=== PATIENT | male | born 1970 | race Hispanic/Latino ===

== ENCOUNTER 2024-08-09 07:03 | Emergency (ER) | payer OTHER ==
[2024-08-09 07:32] LABS: Absolute Eosinophils 0.1 K/uL (0-0.5); Absolute Lymphocytes (CBC) 0.9 K/uL (0.7-4.9); Absolute Monocytes 0.6 K/uL (0.1-1.3); Absolute Neutrophil 5.9 K/uL (1.8-8.0); Basophils % 0.2 % (0-1.3); Eosinophils % 1.1 % (0-4.4); Hematocrit 41.4 % (39.6-49.0); Hemoglobin 14.2 g/dL (13.6-17.9); Lymphocytes % 12.4 % (15.3-44.8); MCH 33.1 pg (27.0-35.0); MCHC 34.2 g/dL (32.0-36.0); MCV 96.9 fL (80-100); MPV 7.2 fL (7.6-11.3); Neutrophils % 78.3 % (41.7-73.7); Platelets 287 thou/uL (152-406); RBC Red Blood Cell Count 4.28 M/uL (4.33-5.43); Red Cell Distribution Width 14.1 % (12.1-15.2)
[2024-08-09 07:51] LABS: Anion Gap 8.6 mEq/L (5.0-15.0); Potassium 3.6 mEq/L (3.5-5.1)
--- NOTE | 2024-08-09 08:01 | RAD REPORT ---
EXAMINATION: ONE VIEW CHEST XR CLINICAL INDICATION: Male, 54 years old.,syncope TECHNIQUE: Frontal chest projection is submitted. Examination is limited by patient positioning and t echnique. COMPARISON: No prior exam. FINDINGS: The lungs are well inflated and clear. No pneumothorax or sizable effusion. The heart is normal in s ize. Mediastinal contours are unremarkable. IMPRESSION: No acute intrathoracic abnormalities.
--- NOTE | 2024-08-09 09:25 | ER ---
Nurse's Notes [facility] Name: Ricardo Edge Age: 54 yrs Sex: Male : 1970 Arrival Date: 08/09/2024 Time: 07:03 Bed 3 Private MD: Diagnosis: Hypoglycemia, unspecified Presentation: 08/09 07:06 Chief complaint: EMS states: TONED OUT FOR PT FOUND UNRESPONSIVE IN TRUCK A WORK SITE, dd2 BGS CHECKED BY CO-WORKER AND GIVEN 1 TUBE OF GLUCOSE. WHEN EMS ARRIVED BGS 30 AND WAS ADMINISTERED 1MG GLUCAGON. PT BECAME AAOX2, BGS RECHECK IN ROUTE. 29. Coronavirus screen: At this time, the client does not indicate any symptoms associated with coronavirus-19. Ebola Screen: No symptoms or risks identified at this time. Initial Sepsis Screen: Does the patient meet any 2 criteria? No. Patient's initial sepsis screen is negative. Does the patient have a suspected source of infection? No. Patient's initial sepsis screen is negative. Risk Assessment: Do you want to hurt yourself or someone else? Patient reports no desire to harm self or others. Onset of symptoms was August 09, 2024. Care prior to arrival: Medication(s) given: Glucagon, Glucose check: 29. 07:06 Method Of Arrival: EMS: [facility] dd2 07:06 Acuity: OLIVIA 3 dd2 Historical: - Allergies: 07:11 No Known Allergies; dd2 - PMHx: 07:11 Diabetes mellitus; Hypertensive disorder; dd2 - PSHx: 07:11 HERNIA REPAIR; dd2 - Immunization history:: Adult Immunizations up to date. - Infectious Disease History:: Denies. - Social history:: Smoking status: Patient denies any tobacco usage or history of. - Family history:: not pertinent. - Hospitalizations: : No recent hospitalization is reported. Screenin:21 [facility] ED Fall Risk Assessment (Adult) History of falling in the last 3 months, ko1 including since admission No falls in past 3 months (0 pts) Confusion or Disorientation No (0 pts) Intoxicated or Sedated No (0 pts) Impaired Gait No (0 pts) Mobility Assist Device Used No (0 pt) Altered Elimination No (0 pt) Score/Fall Risk Level 0 - 2 = Low Risk Oriented to surroundings, Maintained a safe environment, Educated pt \T\ family on fall prevention, incl call for assistance when getting out of bed, Assessed \T\ reinforced patient's understanding of fall precautions, Hourly rounding (assess needs \T\ fall precautionary measures) done. Abuse screen: Denies threats or abuse. Denies injuries from another. Nutritional screening: No deficits noted. Tuberculosis screening: No symptoms or risk factors identified. Assessment: 07:21 General: Appears in no apparent distress. Behavior is calm, cooperative, appropriate ko1 for age. Pain: Complains of pain in right leg and left leg. Neuro: No deficits noted. Cardiovascular: No deficits noted. Respiratory: No deficits noted. GI: No deficits noted. No signs and/or symptoms were reported involving the gastrointestinal system. : No deficits noted. No signs and/or symptoms were reported regarding the genitourinary system. EENT: No deficits noted. No signs and/or symptoms were reported regarding the EENT system. Derm: No deficits noted. No signs and/or symptoms reported regarding the dermatologic system. Musculoskeletal: No deficits noted. No signs and/or symptoms reported regarding the musculoskeletal system. 08:14 Reassessment: Patient states feeling better. Patient states symptoms have improved. to rs5 bedside for blood sugar check, blood sugar results, 208, provider notified . Vital Signs: 07:06 BP 115 / 68; Pulse 57; Resp 15; Temp 97.1; Pulse Ox 99% on R/A; Weight 70.76 kg; dd2 07:24 BP 135 / 71; Pulse 73; Resp 17; Pulse Ox 100% on R/A; ko1 08:51 BP 137 / 51; Pulse 74; Resp 16; Pulse Ox 99% ; ko1 09:29 BP 134 / 68; Pulse 72; Resp 15; Pulse Ox 99% ; ko1 ED Course: 07:05 Patient arrived in ED. dd2 07:05 Raymon Chang MD is Attending Physician. rn 07:11 Triage completed. dd2 07:11 Marlen Boo, JOSAFAT is Primary Nurse. ko1 07:11 Arm band placed on right wrist. Patient placed in an exam room, on a stretcher, on dd2 pulse oximetry. 07:20 Basic Metabolic Panel Sent. ko1 07:20 CBC with Diff Sent. ko1 07:20 NT PRO-BNP Sent. ko1 07:20 Troponin HS Sent. ko1 07:21 Patient has correct armband on for positive identification. Placed in gown. Bed in low ko1 position. Call light in reach. Side rails up X2. Provided Education on: meds, labs. Client placed on continuous cardiac and pulse oximetry monitoring. NIBP monitoring applied. perishable freight inspector on. Door closed. Noise minimized. Warm blanket given. Pillow given. Diet tray given. PO fluids given. 07:21 Initial lab(s) drawn, by me, sent to lab. EKG done, by ED staff, reviewed by Raymon Chang MD. Inserted saline lock: 20 gauge in left antecubital area, using aseptic technique. Blood collected. Flushed with 10 mL NS. 07:46 XRAY Chest (1 view) In Process Unspecified. EDMS 09:29 No provider procedures requiring assistance completed. IV discontinued, intact, ko1 bleeding controlled, No redness/swelling at site. Pressure dressing applied. Administered Medications: No medications were administered Medication: 07:21 VIS not applicable for this client. ko1 Point of Care Testing: Blood Glucose: 07:11 Blood Glucose: 68 mg/dL; dd2 Ranges: Outcome: 09:25 Discharge ordered by . rn 09:29 Discharged to home ambulatory, with friend, ko1 09:29 Condition: stable 09:29 Discharge instructions given to patient, Instructed on discharge instructions, follow up and referral plans. Demonstrated understanding of instructions, follow-up care, medications, 09:34 Patient left the ED. ko1 Signatures: Dispatcher [employer] EDMS Raymon Chang MD MD rn Oliver, Kathy RN RN ko1 Eddie Nunn RN RN rs5 YOMI DAMON RN RN dd2 Corrections: (The following items were deleted from the chart) 07:13 07:11 Blood Glucose: Blood Glucose Reading=62 mg/dL. dd2 dd2
--- NOTE | 2024-08-09 09:26 | EDPHYS ---
Physician Documentation [facility] Name: Ricardo Edge Age: 54 yrs Sex: Male : 1970 Arrival Date: 08/09/2024 Time: 07:03 Bed 3 Private MD: ED Physician Raymon Chang HPI: 08/09 07:40 This 54 yrs old Male presents to ER via EMS with complaints of Low Blood rn Sugar, Altered Mental Status. 07:40 The patient or guardian reports hypoglycemia, that was potentially precipitated by no rn particular event. Onset: The symptoms/episode began/occurred this morning. Associated signs and symptoms: Pertinent negatives: nausea, seizure activity, vomiting. Current symptoms: In the emergency department the patient's symptoms have improved. The patient has experienced similar episodes in the past. Patient brought in for low blood sugar by EMS. Patient was found at work altered. Glucose was in the 20s and given oral glucose with improvement of symptoms. EMS administered glucagon with continued improvement in mental status. Patient reports has been on insulin for years took it this morning and ate some food. Denies recent illness. No chest pain or shortness of breath. No abdominal pain. No vomiting or diarrhea. No focal neurological deficit. No injury from a fall. Patient does not remember events. Denies headache or head pain. No neck pain or back pain.. Historical: - Allergies: 07:11 No Known Allergies; dd2 - PMHx: 07:11 Diabetes mellitus; Hypertensive disorder; dd2 - PSHx: 07:11 HERNIA REPAIR; dd2 - Immunization history:: Adult Immunizations up to date. - Infectious Disease History:: Denies. - Social history:: Smoking status: Patient denies any tobacco usage or history of. - Family history:: not pertinent. - Hospitalizations: : No recent hospitalization is reported. ROS: 07:40 Constitutional: Negative for fever, chills, and weight loss, Cardiovascular: Negative rn for chest pain, palpitations, and edema, Respiratory: Negative for shortness of breath, cough, wheezing, and pleuritic chest pain, Abdomen/GI: Negative for abdominal pain, nausea, vomiting, diarrhea, and constipation, Back: Negative for injury and pain, MS/Extremity: Negative for injury and deformity, Skin: Negative for injury, rash, and discoloration, Neuro: Negative for headache, weakness, numbness, tingling, and seizure, Exam: 07:40 Constitutional: This is a well developed, well nourished patient who is awake, alert, rn and in no acute distress. Head/Face: Normocephalic, atraumatic. Cardiovascular: Regular rate and rhythm. No pulse deficits. Respiratory: No increased work of breathing, no retractions or nasal flaring. Abdomen/GI: Soft, non-tender Neuro: Awake and alert, GCS 15, oriented to person, place, time, and situation. Cranial nerves II-XII grossly intact. Motor strength 5/5 in all extremities. Sensory grossly intact. Cerebellar exam normal. Normal gait. Vital Signs: 07:06 BP 115 / 68; Pulse 57; Resp 15; Temp 97.1; Pulse Ox 99% on R/A; Weight 70.76 kg; dd2 07:24 BP 135 / 71; Pulse 73; Resp 17; Pulse Ox 100% on R/A; ko1 08:51 BP 137 / 51; Pulse 74; Resp 16; Pulse Ox 99% ; ko1 09:29 BP 134 / 68; Pulse 72; Resp 15; Pulse Ox 99% ; ko1 MDM: 07:05 Medical Screening Exam initiated rn 09:22 Differential diagnosis: hypoglycemic episode. Data reviewed: vital signs, nurses notes. rn 09:23 Counseling: I had a detailed discussion with the patient and/or guardian regarding the rn historical points, exam findings, and any diagnostic results supporting the discharge/admit diagnosis, lab results, radiology results, the need for outpatient follow up, to return to the emergency department if symptoms worsen or persist or if there are any questions or concerns that arise at home. Response to treatment: the patient's symptoms have markedly improved after treatment, the patient's condition has returned to base line, the patient is now symptom free, and as a result, I will discharge patient. Special discussion: I discussed with the patient/guardian in detail that at this point there is no indication for admission to the hospital. It is understood, however, that if the symptoms persist or worsen the patient needs to return immediately for re-evaluation. ED course: Patient feels much better, back to baseline, smiling and joking. Glucose above 200 now after p.o. challenge. This has happened to her multiple times before, no acute findings and workup today. Normal neurological exam. Patient states has been managing his insulin on his own and last time this happened was a few months ago. Will discharge home with PCP follow-up and return precautions.. 08/09 07:15 Order name: Basic Metabolic Panel; Complete Time: 07:56 rn 08/09 07:15 Order name: CBC with Diff; Complete Time: 07:56 rn 08/09 07:15 Order name: NT PRO-BNP; Complete Time: 07:56 rn 08/09 07:15 Order name: Troponin HS; Complete Time: 07:56 rn 08/09 07:20 Order name: Glucose, Ancillary Testing; Complete Time: 07:35 EDMS 08/09 08:25 Order name: Glucose, Ancillary Testing; Complete Time: 08:32 EDMS 08/09 07:15 Order name: XRAY Chest (1 view); Complete Time: 08:02 rn 08/09 07:15 Order name: Cardiac monitoring; Complete Time: 07:16 rn 08/09 07:15 Order name: EKG - Nurse/Tech; Complete Time: 07:20 rn 08/09 07:15 Order name: IV Saline Lock; Complete Time: 07:16 rn 08/09 07:15 Order name: Labs collected and sent; Complete Time: 07:16 rn 08/09 07:15 Order name: O2 Per Protocol; Complete Time: 07:16 rn 08/09 07:15 Order name: O2 Sat Monitoring; Complete Time: 07:16 rn 08/09 07:15 Order name: PO challenge; Complete Time: 07:16 rn Administered Medications: No medications were administered Point of Care Testing: Blood Glucose: 07:11 Blood Glucose: 68 mg/dL; dd2 Ranges: Critical Glucose Levels:Adult <50 mg/dl or >400 mg/dl <40 mg/dl or >180 mg/dl Disposition Summary: 08/09/24 09:25 Discharge Ordered Notes: Location: Home rn Problem: new rn Symptoms: have improved rn Condition: Stable rn Diagnosis - Hypoglycemia, unspecified rn Followup: rn - With: Private Physician - When: As needed - Reason: Recheck today's complaints, Re-evaluation by your physician Discharge Instructions: - Discharge Summary Sheet rn - Hypoglycemia rn - Blood Glucose Monitoring, Adult rn Forms: - Medication Reconciliation Form rn - Antibiotic rn rehab - Prescription Opioid Use rn - Patient Portal Instructions rn - Leadership Thank You Letter rn Signatures: Dispatcher [id number] EDRI Raymon Chang MD MD rn MARISOL, JOSAFAT CELAYA RN dd2 Corrections: (The following items were deleted from the chart) 07:16 07:16 BASIC METABOLIC PANEL+C.LAB.BRZ ordered. EDMS EDMS 07:16 07:16 CBC+H.LAB.BRZ ordered. EDMS EDMS 07:16 07:16 PROBNP+C.LAB.BRZ ordered. EDMS EDMS 07: 07:16 Troponin High Sensitivity+C.LAB.BRZ ordered. EDMS EDMS 07:16 07:16 Chest Single View+RAD.RAD.BRZ ordered. EDMS EDMS
[2024-08-09 09:40] VITALS: TEMP 97.1
[2024-08-09 09:43] VITALS: O2SAT 99
[2024-08-09 09:45] VITALS: BP 134/68
--- NOTE | 2024-08-14 11:02 | EKG ---
Test Date: 2024-08-09 Test Time: 07:22:08 Coal Cager: VIOLET MEASUREMENT RESULTS: Intervals: Rate: 57 OR: 136 QRSD: 100 QT: 442 QTc: 430 [place]: P: 66 OR: 136 QRS: 59 T: 57 INTERPRETIVE STATEMENTS: Suspect unspecified pacemaker failure Sinus bradycardia Otherwise normal ECG No previous ECG available for comparison Electronically Signed On 08-14-24 10:54:35 EQUIPMENT VALIDATION ENGINEER by Manuel Mcclellan
--- NOTE | 2024-08-14 11:02 | EKG ---
Test Date: 2024-08-09 Test Time: 07:22:55 Traffic Reporter: VIOLET MEASUREMENT RESULTS: Intervals: Rate: 61 ME: 138 QRSD: 98 QT: 456 QTc: 459 [place]: P: 83 ME: 138 QRS: 57 T: 54 INTERPRETIVE STATEMENTS: Suspect unspecified pacemaker failure Normal sinus rhythm Normal ECG Compared to ECG 08/09/2024 07:22:08 Sinus bradycardia no longer present Electronically Signed On 08-14-24 10:54:31 FINE GRADE BULLDOZER OPERATOR by Manuel Mcclellan
== END 2024-08-09 09:34 | disposition home or self-care (01) ==
LOC: ER 07:03
DX: E11.649 Type 2 diabetes mellitus with hypoglycemia without coma (principal)
CPT/HCPCS: 36415; 71045; 80048; 82947; 83880; 84484; 85025; 93005; 99285